=== PATIENT | female | born 1975 | race American Indian/Alaskan Native ===

== ENCOUNTER 2017-02-22 08:06 | Emergency (ER) | payer OTHER ==
[2017-02-22 08:20] VITALS: TEMP 98.7; BMI 39.1
--- NOTE | 2017-02-22 09:03 | ED PDOC ---
Arrival/HPI <Hong Sadler - Last Filed: 02/22/17 11:20> <Adarsh Manning - Last Filed: 02/22/17 15:44> - General Chief Complaint: Lower Extremity Problem/Injury Time Seen by Provider: 02/22/17 08:39 - History of Present Illness Narrative History of Present Illness (Text): 41 year old female presenting to [facility] medical clearance to travel by air after sustaining a fall on her left side while cycling downhill in [facility]. After the fall, she was [place] and medically evaluated. On the cruise ship X-rays of the left lower extremity showed a fracture. She has abrasions on her left hand, left cheek, and her left lower extremity is completely immobilized and splinted. She is accompanied by her significant other. She denies any chest pain, shortness of breath, but admits to pain from the left knee down. 02/22/17 08:57 (Hong Sadler) Past Medical History - Provider Review Nursing Documentation Reviewed: Yes - Reproductive Menopause: No - Cardiac Hx Cardiac Disorders: No - Pulmonary Hx Respiratory Disorders: No - Neurological Hx Neurological Disorder: No - HEENT Hx HEENT Disorder: No Hx Blind: No - Renal Hx Renal Disorder: No - Endocrine/Metabolic Hx Endocrine Disorders: Yes Hx Hypothyroidism: Yes - Hematological/Oncological Hx Blood Disorders: No - Integumentary Hx Dermatological Disorder: No - Musculoskeletal/Rheumatological Hx Musculoskeletal Disorders: No - Gastrointestinal Hx Gastrointestinal Disorders: No Hx Bowel Surgery: No - Genitourinary/Gynecological Hx Genitourinary Disorders: No - Psychiatric Hx Psychophysiologic Disorder: No Hx Substance Use: No - Surgical History Hx Section: Yes Hx Gastric Bypass Surgery: Yes Hx Orthopedic Surgery: Yes <Hong Sadler - Last Filed: 02/22/17 11:20> Family/Social History Family/Social History: No Known Family HX Smoking Status: Never Smoked Hx Alcohol Use: No Hx Substance Use: No <Hong Sadler - Last Filed: 02/22/17 11:20> - Physician Review Nursing Documentation Reviewed: Yes <Adarsh Manning - Last Filed: 02/22/17 15:44> Allergies/Home Meds <Hong Sadler - Last Filed: 02/22/17 11:20> <Adarsh Manning - Last Filed: 02/22/17 15:44> Allergies/Adverse Reactions: Allergies No Known Allergies Allergy (Verified 02/22/17 08:34) Home Medications: Home Meds Medication Instructions Recorded Confirmed Desvenlafaxine Succinate [Pristiq] 0 mg PO DAILY 02/22/17 02/22/17 Levothyroxine [Levothyroxine] 300 mcg PO DAILY 02/22/17 02/22/17 Review of Systems - Review of Systems Constitutional: Normal. absent: Fatigue, Weight Change, Fevers Eyes: absent: Vision Changes, Photophobia ENT: Normal. absent: Hearing Changes, Tinnitus, TMJ Pain Respiratory: Normal. absent: SOB, Cough, Sputum Cardiovascular: absent: Chest Pain, Palpitations, Edema Gastrointestinal: absent: Abdominal Pain, Stool Changes, Constipation Genitourinary Female: Normal. absent: Dysuria, Frequency, Hematuria Musculoskeletal: Arthralgias, Joint Swelling, Myalgias Skin: Laceration (left hand and left face) Neurological: Normal. absent: Headache, Dizziness, Focal Weakness Endocrine: Normal Hemo/Lymphatic: Normal. absent: Easy Bleeding, Easy Bruising Psychiatric: Depression <Hong Sadler - Last Filed: 02/22/17 11:20> Physical Exam Temperature: Afebrile Blood Pressure: Hypertensive Pulse: Regular Respiratory Rate: Normal Appearance: Positive for: Non-Toxic Pain Distress: Moderate Mental Status: Positive for: Alert and Oriented X 3 - Systems Exam Head: Present: Atraumatic, Normocephalic, Abrasion (left cheek) Pupils: Present: PERRL Extroacular Muscles: Present: EOMI Conjunctiva: Present: Normal Mouth: Present: Moist Mucous Membranes, Normal Teeth Pharnyx: Present: Normal. No: ERYTHEMA, EXUDATE Neck: Present: Normal Range of Motion. No: Meningeal Signs, Lymphadenopathy Respiratory/Chest: Present: Clear to Auscultation, Good Air Exchange. No: Wheezes Cardiovascular: Present: Regular Rate and Rhythm, Normal S1, S2 Abdomen: No: Tenderness, Distention, Peritoneal Signs, Rebound Upper Extremity: Present: Normal Inspection, Other (left dorsum of hand) Lower Extremity: Present: Other (left lower extremity is splinted and unable to assess ROM or palpate; tenderness is elicited on palpation of the left LE below the knee) Neurological: Present: CN II-XII Intact, Speech Normal Skin: Present: Warm, Dry, Normal Color Psychiatric: Present: Alert, Oriented x 3, Normal Insight <Hong Sadler - Last Filed: 02/22/17 11:20> Vital Signs Reviewed: Yes <Adarsh Manning - Last Filed: 02/22/17 15:44> Vital Signs Temp Pulse Resp BP Pulse Ox 02/22/17 14:07 77 18 141/85 98 02/22/17 11:45 89 18 147/84 100 02/22/17 08:20 98.7 F 80 19 151/91 H 95 Medical Decision Making <Hong Sadler - Last Filed: 02/22/17 11:20> <Adarsh Manning - Last Filed: 02/22/17 15:44> ED Course and Treatment: Plain films of the left knee, femur, and tibia/fibular ordered. 02/22/17 09:08 Tibia and Fibula radiograph reads as comminuted fracture of the proximal tibia with depression of the lateral tibial plateau. There is also a displaced fracture of the proximal fibula. The findings, the risks of air travel/DVT, and non-surgical intervention of the above-mentioned fractures were discussed with the patient. At this point in time , the patient would like to fly back home to [place], [place] for surgical intervention. 02/22/17 11:20 (Hong Sadler) A 41 year old male presents to evaluation and medical clearance after fall. In agreement with resident note, which includes further HPI details. Patient was seen and evaluated with resident, came up with plan and treatment together. [place] with tibial plataeu fx. pt declining any orthopedic intervention specifically requesting to return to [facility] for further management and operative intervention. refuses admission possible OR. pt states she will take next flight back. pt understands risks of dvt, worsening of condition. 02/22/17 15:43 (Adarsh Manning) - RAD Interpretation Radiology Orders: 02/22/17 08:52 TIBIA FIBULA LEFT [RAD] Stat 02/22/17 08:55 FEMUR MIN 2 VIEWS LT [RAD] Stat 02/22/17 08:56 KNEE LEFT 2 VIEWS (AP & LAT) [RAD] Stat - Medication Orders Current Medication Orders: Discontinued Medications Morphine Sulfate (Morphine) 4 mg IM STAT STA Stop: 02/22/17 11:19 Last Admin: 02/22/17 11:48 Dose: 4 mg MAR Pain Assessment Document 02/22/17 11:48 EQ (Rec: 02/22/17 11:48 EQ [id number]) Pain Reassessment Is this a pain reassessment? No Sleep Is patient sleeping during reassessment? No Presence of Pain Presence of Pain Yes Pain Scale Used Pain Scale Used Numeric IM Administration Charges Document 02/22/17 11:48 EQ (Rec: 02/22/17 11:48 EQ [id number]) Charges for Administration # of IM Administrations 1 Oxycodone/Acetaminophen (Percocet 5/325 Mg Tab) 1 tab PO STAT STA Stop: 02/22/17 10:04 Last Admin: 02/22/17 10:34 Dose: 1 tab MAR Pain Assessment Document 02/22/17 10:34 NH (Rec: 02/22/17 10:35 NH [id number]) Pain Reassessment Is this a pain reassessment? Yes Sleep Is patient sleeping during reassessment? Yes Pain Scale Used Pain Scale Used Numeric Location Left, Right or Bilateral Left Pain Location Body Site Knee Description Description Acute Intensity of Pain at present 10 Acceptable Level of Pain 2 Pain Behavior Moaning Facial Grimacing Screaming Aggravating Factors Changing Position Alleviating Factors/Management Position Change Techniques Alleviating Factors Medication - PA / SHIPYARD PAINTER / Resident Statement MD/DO has reviewed & agrees with the documentation as recorded. MD/DO has examined the patient and agrees with the treatment plan. <Adarsh Manning - Last Filed: 02/22/17 15:44> Disposition/Present on Arrival - Present on Arrival Any Indicators Present on Arrival: No History of DVT/PE: No History of Uncontrolled Diabetes: No Urinary Catheter: No History of Decub. Ulcer: No History Surgical Site Infection Following: None - Disposition Have Diagnosis and Disposition been Completed?: Yes Disposition Time: 11:29 <Hong Sadler - Last Filed: 02/22/17 11:20> <Adarsh Manning - Last Filed: 02/22/17 15:44> - Disposition Diagnosis: Tibial fracture Disposition: HOME/ ROUTINE Condition: STABLE Discharge Instructions (ExitCare): Leg Fracture (ED) Additional Instructions: please follow up with your orthopedic doctor. return to any er with any concern. you are requesting to return home to manage your fracture, however you are allowed to return to any er at any point with any concern Prescriptions: oxyCODONE/Acetaminophen [Percocet 5/325 mg Tab] 1 ea PO Q6 PRN #10 tab PRN Reason: Pain, Mild (1-3) Referrals: [facility] [place] [Outside] - Follow up with primary PCP,NO [Primary Care Provider] - Follow up with primary Forms: [employer] ([place])
[2017-02-22] MEDS ORDERED: Oxycodone/Acetaminophen 5/325 mg Tab PO STA (10:03)
--- NOTE | 2017-02-22 11:09 | RAD ---
PROCEDURE: Left tibia and fibula HISTORY: fracture COMPARISON: TECHNIQUE: The study is limited to a single lateral film. The views of the knee showed fractures of the proximal tibia and fibula FINDINGS: There are no distal tibial or fibular fractures. IMPRESSION: Negative study
--- NOTE | 2017-02-22 11:10 | RAD ---
PROCEDURE: Left Knee Radiographs. HISTORY: Pain. COMPARISON: None. FINDINGS: BONES: There is a comminuted fracture of the proximal tibia with depression of the lateral tibial plateau. There is also a displaced fracture of the proximal fibula JOINTS: Normal. No osteoarthritis. JOINT EFFUSION: None. OTHER FINDINGS: None. IMPRESSION: There is a comminuted fracture of the proximal tibia with depression of the lateral tibial plateau. There is also a displaced fracture of the proximal fibula
--- NOTE | 2017-02-22 11:11 | RAD ---
PROCEDURE: Left Femur Radiographs. HISTORY: pain COMPARISON: None. TECHNIQUE: AP and Lateral Radiographs of the left femur. FINDINGS: FEMUR: Normal. No fracture. SOFT TISSUES: Normal. OTHER FINDINGS: None. IMPRESSION: Unremarkable radiographs of the left femur.
[2017-02-22] MEDS ORDERED: Morphine 4 mg/ml ISec IM STA (11:18)
[2017-02-22 14:08] VITALS: BP 141/85; PULSE 77; RESP 18; O2SAT 98
== END 2017-02-22 14:08 | disposition home or self-care (01) ==
LOC: ED 08:06
DX: S82.142A Displaced bicondylar fracture of left tibia, initial encounter for closed fracture (principal); V19.3XXA Pedal cyclist (driver) (passenger) injured in unspecified nontraffic accident, initial encounter
CPT/HCPCS: 73552; 73560; 73590; 96372; 99284; J2270